=== PATIENT | female | born 1980 | race Caucasian/White ===

== ENCOUNTER 2016-12-24 13:35 | Emergency (ER) | payer MEDICAID, OTHER ==
[~2016-12-24] VITALS: Ht 167.6 cm; Wt 58.0 kg
[~2016-12-24 13:35] MED LIST: NAPR550 PO; PREN0.01 PO; SENN1TAB11 PO
[2016-12-24 13:37] VITALS: BP 123/69; PULSE 91; RESP 16; TEMP 98.7; O2SAT 98
[2016-12-24] MEDS ORDERED: DIAZ5 PO (14:09)
[2016-12-24] MEDS ORDERED: NORC5TAB PO (14:09)
--- NOTE | 2016-12-24 15:05 | PD ---
HPI Chief Complaint: Pain: Acute or Chronic Time Seen by Provider: 14:19 Travel History International Travel<30 days: No Contact w/Intl Traveler<30days: No Traveled to known affect area: No History of Present Illness HPI 36-year-old female presents to the emergency room requesting x-rays of her left wrist. She states about 6 weeks ago she started feeling pain in her left wrist. She denies any trauma or injury to the area. States it persisted so she went to an urgent care center about 3 weeks ago to have it evaluated. They did x-rays at the urgent care center and told her that there is likely a fracture in her wrist and that she needs to follow up with an orthopedic doctor. They put her in a Velcro wrist splint and give her prescription for Tylenol 3. She went to her primary care physician 3 days after the urgent care center to get a referral but the PCP told her that she did not need a referral. He gave her [place] which helped her pain but she is out of it at this time. Pain is constant, throbbing, localized to radial styloid. She denies paresthesias. History Past Medical Histgory LMP: 12/21/16 Allergies-Medications (Allergen,Severity, Reaction): Coded Allergies: No Known Allergies (Verified Allergy, Unknown, 09/08/07) Reported Meds & Prescriptions Reported Meds & Active Scripts Active Reported Valium (Diazepam) 5 Mg Tab 5 Mg PO BID PRN [place] (Hydrocodone-Acetaminophen) 5-325 mg Tab 1 Tab PO Q4H PRN Review of Systems Except as stated in HPI: all other systems reviewed are Neg Physical Exam Narrative GENERAL: Well-nourished, well-developed female in no acute distress. Afebrile. Ambulatory. SKIN: Focused skin assessment warm/dry. No erythema or ecchymosis. HEAD: Normocephalic. EYES: No scleral icterus. No injection or drainage. NECK: Supple, trachea midline. No JVD or lymphadenopathy. CARDIOVASCULAR: Regular rate and rhythm without murmurs, gallops, or rubs. RESPIRATORY: Breath sounds equal bilaterally. No accessory muscle use. MUSCULOSKELETAL: No cyanosis. No edema. 2+ radial pulse. Radial, ulnar, and median nerves intact. No significant bony tenderness to palpation of the wrist. Data Data Last Documented VS Vital Signs Date Time Temp Pulse Resp B/P (MAP) Pulse Ox O2 Delivery O2 Flow Rate FiO2 12/24/16 13:37 98.7 91 16 123/69 (87) 98 MDM Medical Screen Exam Complete: Yes Emergency Medical Condition: No Differential Diagnosis Chronic wrist pain Narrative Course 36-year-old female presents to the emergency room requesting a second opinion and x-rays of her left wrist. Patient had x-rays about 2 weeks ago at an urgent care center where she was informed that she had a wrist fracture but only placed in a Velcro wrist splint. She was instructed to follow up with orthopedic surgeon but her primary care physician will not give her a referral. Patient states pain is severe, constant, throbbing pain. Denies paresthesias. Left upper extremity is neurovascularly intact with 2+ radial pulse. Radial, ulnar, and median nerves intact. No obvious edema, deformity, or TTP. Patient brought her x-ray CD which I reviewed. There is no obvious fracture of the radial styloid which is where her pain is localized. I suspect soft tissue injury or tendinitis. There are no urgent or emergent medical conditions at this time. A medical screening exam was performed: At the time of evaluation the presenting medical condition was determined not to be of an emergent nature. The patient was given the option of receiving additional care, such as repeat x- rays, but declined. Patient was given options for additional community resources from which to obtain care. The Patient Has Been advised to seek medical attention for their presenting complaint. The patient has been advised to return to the ER at any time if an emergent condition develops. Primary Impression: Encounter for medical screening examination Disposition: 01 DISCHARGE HOME Condition: Stable Alessandra Lechuga Dec 24, 2016 15:04
== END 2016-12-24 15:00 | disposition left against medical advice (07) ==
LOC: NEPK 13:35
DX: M25.532 Pain in left wrist (principal)
CPT/HCPCS: 99281